=== PATIENT | female | born 1990 | race Caucasian/White ===

== ENCOUNTER 2016-12-25 10:29 | Emergency (ER) | payer MEDICAID ==
[~2016-12-25 10:29] MED LIST: ALBUTEROL17 GM INH; ATARAX50 MG PO; CIPRO500 M2 PO; COMPAZINE10 M PO; DOXYCYCLINE PO; EFFEXOR; ELIMITE60 GM TP; FLAGYL500 MG PO; IBUPROFEN600 MG PO; IBUPROFEN800 MG PO; LAMICTAL5 MG; LEXAPRO; MACROBID 100 M100 MG PO; MELATONIN3 MG; MOTRIN800 MG PO; NAUSEA MED PO; NIX59 ML TP; NO MEDS; NORCO 5-325 TA1 EACH PO; NORCO 5/325 TAB1 TAB PO; OXYCODONE/APAP PO; PEPCID20 MG PO; PREDNISONE10 MG PO; PREDNISONE20 MG PO; PRENATAL1 EACH PO; SEROQUEL100 MG; TRAZODONE100 MG; TYLENOL650 MG PO; VISTARIL50 MG; ZOFRAN ODT4 MG/UDTAB PO; ZOFRAN4 MG PO; ZOLOFT100 MG; ZOLOFT100 MG PO; ZYPREXA2.5 MG; [UNRECOGNIZED DRUG - OTHER] VG
[2016-12-25] MEDS ORDERED: NORCO 5-325 TA1 EACH PO (11:06)
== END 2016-12-25 11:31 ==
LOC: EDMED 10:29
DX: G89.29 Other chronic pain (principal); M54.5 Low back pain; F17.210 Nicotine dependence, cigarettes, uncomplicated; Z88.2 Allergy status to sulfonamides

== ENCOUNTER 2016-12-28 17:12 | Emergency (ER) | payer MEDICAID ==
[2016-12-28] MEDS ORDERED: NORCO 5-325 TA1 EACH PO (18:38)
== END 2016-12-28 18:51 ==
LOC: EDMED 17:12
DX: S60.012A Contusion of left thumb without damage to nail, initial encounter (principal); Z88.2 Allergy status to sulfonamides; W23.0XXA Caught, crushed, jammed, or pinched between moving objects, initial encounter